=== PATIENT | female | born 1985 | race Two or more races ===

== ENCOUNTER 2017-07-18 16:37 | Emergency (ER) | payer BC, OTHER ==
[2017-07-18 16:55] VITALS: BMI 29.0
--- NOTE | 2017-07-18 17:13 | OBHP ---
Datetime: 07/18/2017 17:00 IP Adm Impression: , intrauterine ; Intact Membranes IP Admit Plan: Observation/Evaluation Admit Comment, IP Provider: 31yo IUP at 27w c/o vaginal discomfort for a few weeks. Today she felt that it was more and undure if it was lower abd. No F/U/D. No meds taken. PNC: CP/Dr Parikh - chart rev'd - no AP complicatoins PMH: denies PSH: denies POBGYNH: x 1; spont ab x 1 - no STD NKA PSoH: denies smoking ETOH drugs PFH: denies DM HTN A: IUP at 27w vaginal pain/?pelvic pain - threatened PTL PLAN: Check UA/FFN Abdomen - PN: Normal General - PN: Normal FHR - Baseline A Provider: 135 Membranes, Provider: Intact Contraction Comments Provider: none Comments, ACOG Physical Exam: In NAD SSE: no dischargre/Cervix closed Pool Provider: Negative IP Hx Assessment: The History has been Reviewed and is Current EGA AdmitDate IP: 28.3 Vital Signs Provider: Reviewed; Within Normal Limits IP Chief Complaint: Other NICHD Variability Prov Fetus A: Moderate 6-25bpm NICHD Accel Fetus A IP Provider: 10X10 FHR Category Provider Fetus A: Category I Dilatation, Provider: 0 Genitourinary Exam: Normal
[2017-07-18 17:51] LABS: SPECIMEN COMMENT CLOUDY
[2017-07-18 18:17] LABS: SQUAMOUS EPITHIAL < 1 /hpf (0-5); URINE BACTERIA OCC (<OCC); URINE BILIRUBIN NEGATIVE (NEGATIVE); URINE BLOOD NEGATIVE (NEGATIVE); URINE CLARITY CLEAR (Clear); URINE COLOR STRAW (YELLOW); URINE GLUCOSE (UA) NEG (Normal); URINE LEUKOCYTE ESTERASE NEG Leu/uL (Negative); URINE PROTEIN NEGATIVE (NEGATIVE); URINE UROBILINOGEN 0.2-1.0 mg/dL (0.2-1.0)
[2017-07-19 00:25] VITALS: BP 111/61; PULSE 65
--- NOTE | 2017-07-19 07:37 | OBDCSUM ---
Datetime: 07/18/2017 17:57 Discharge Comment, Provider: Add: pt was called by Dr Bailey and told not to take Abx UA neg(no nitrites/no leuko est) Discharge Diagnosis Prov Other: Vaginal pain
== END 2017-07-18 17:57 | disposition home or self-care (01) ==
LOC: H.EROB2 16:37
DX: O26.93 Pregnancy related conditions, unspecified, third trimester (principal); R10.2 Pelvic and perineal pain; Z3A.27 27 weeks gestation of pregnancy

== ENCOUNTER 2017-08-14 16:43 | Emergency (ER) | payer OTHER ==
[2017-08-14 15:32] VITALS: BMI 29.9
[2017-08-14 15:55] LABS: BASO % 0.2 % (0.0-2.0); EOS # 0.1 K/uL (0.0-0.7); EOS % 0.5 % (0.0-4.0); HEMOGLOBIN 12.1 g/dL (12.0-16.0); LYMPH # 1.7 K/uL (1.0-4.3); LYMPH % 14.8 % (20.0-40.0); MEAN CELL VOLUME 92.5 fl (81.0-99.0); MEAN CORPUSCULAR HEMOGLOBIN 31.7 pg (27.0-31.0); MEAN CORPUSCULAR HGB CONC 34.3 g/dL (33.0-37.0); MEAN PLATELET VOLUME 8.1 fl (7.2-11.7); MONO # 0.5 K/uL (0.0-0.8); MONO % 4.6 % (0.0-10.0); NEUT # 9.4 K/uL (1.8-7.0); NEUT % 79.9 % (50.0-75.0); RBC 3.82 Mil/uL (3.80-5.20); RED CELL DISTRIBUTION WIDTH 13.1 % (11.5-14.5); WHITE BLOOD COUNT 11.8 K/uL (4.8-10.8)
[2017-08-14 15:58] LABS: SQUAMOUS EPITHIAL 1 /hpf (0-5); URINE BACTERIA RARE (<OCC); URINE BILIRUBIN NEGATIVE (NEGATIVE); URINE BLOOD NEGATIVE (NEGATIVE); URINE CLARITY SLIGHTY-CLOUDY (Clear); URINE COLOR YELLOW (YELLOW); URINE GLUCOSE (UA) 50 mg/dL (Normal); URINE LEUKOCYTE ESTERASE NEG Leu/uL (Negative); URINE PROTEIN NEGATIVE (NEGATIVE); URINE UROBILINOGEN 0.2-1.0 mg/dL (0.2-1.0)
[2017-08-14 16:18] LABS: ALB/GLOB RATIO 1.1 (1.0-2.1); ALBUMIN 3.6 g/dL (3.5-5.0); ALT/SGPT 25 U/L (9-52); AST/SGOT 30 U/L (14-36); BLOOD UREA NITROGEN 11 mg/dl (7-17); CALCIUM 8.6 mg/dL (8.4-10.2); GFR AFRICAN-AMERICAN > 60; GFR NON-AFRICAN AMERICAN > 60
--- NOTE | 2017-08-14 16:25 | OBHP ---
Datetime: 08/14/2017 16:12 IP Adm Impression: , intrauterine IP Chief Complaint Other: diarrhea IP Admit Plan: Observation/Evaluation Admit Comment, IP Provider: Patient is a 31-year-old 3 para 1011 EDC 10/16/2017 by a 9 week ultrasound presents 32.2 weeks with complaints of diarrhea or AVMs morning. She denies nausea and vom iting date she is tolerating by mouth daily she had a banana in morning and some noodles in early aft ernoon. She denies decreased movement contractions and spontaneous rupture of membranes or vag inal bleeding care with Dr. Amador Past OB history spontaneous vaginal delivery 1; spontaneous AB times Past medical history: Denies Past surgical history: Denies Drug allergies Social history denies tobacco alcohol or illicit drug use Impression 32.2 weeks diarrhea Plan: IV fluid hydration CBC, CMP and UA Pelvic Type - PN: Adequate Extremities - PN: Normal Abdomen - PN: Normal Heart - PN: Normal Neurologic - PN: Normal HEENT - PN: Normal General - PN: Normal FHR - Baseline A Provider: 130 Contraction Comments Provider: no EGA AdmitDate IP: 32.2 Vital Signs Provider: Within Normal Limits IP Chief Complaint: Trauma/Fall NICHD Variability Prov Fetus A: Moderate 6-25bpm NICHD Accel Fetus A IP Provider: 15X15 FHR Category Provider Fetus A: Category I NICHD Decel Fetus A IP Provider: None Dilatation, Provider: 0 Effacement, Provider: 0 Station, Provider: -3 Genitourinary Exam: Normal
[~2017-08-14 16:43] MED LIST: Lactated Ringer's 1,000 ML IV SCH
== END 2017-08-14 17:00 | disposition home or self-care (01) ==
LOC: H.EROB2 16:43 → EDSTATUS 17:35 → H.EROB2 17:35
DX: O26.93 Pregnancy related conditions, unspecified, third trimester (principal); R19.7 Diarrhea, unspecified; Z3A.32 32 weeks gestation of pregnancy
CPT/HCPCS: 80053; 81003; 85025; 99283; J7120

== ENCOUNTER 2017-10-05 05:56 | Inpatient (IN) | payer OTHER ==
[2017-10-05 06:10] VITALS: BMI 30.7
[2017-10-05] MEDS ORDERED: Lactated Ringer's 1,000 ML IV SCH (06:15)
[2017-10-05] MEDS ORDERED: Penicillin G 5 Million Unit Vial IVPB ONE (06:23)
[2017-10-05] MEDS: Lactated Ringer's 1,000 ML IV SCH ×2 (07:30→08:30)
[2017-10-05 07:45] LABS: BASO % 0.4 % (0.0-2.0); EOS # 0.3 K/uL (0.0-0.7); EOS % 3.4 % (0.0-4.0); HEMOGLOBIN 12.6 g/dL (12.0-16.0); LYMPH # 1.9 K/uL (1.0-4.3); LYMPH % 23.8 % (20.0-40.0); MEAN CELL VOLUME 92.7 fl (81.0-99.0); MEAN CORPUSCULAR HEMOGLOBIN 30.9 pg (27.0-31.0); MEAN CORPUSCULAR HGB CONC 33.4 g/dL (33.0-37.0); MEAN PLATELET VOLUME 9.3 fl (7.2-11.7); MONO # 0.5 K/uL (0.0-0.8); MONO % 6.5 % (0.0-10.0); NEUT # 5.4 K/uL (1.8-7.0); NEUT % 65.9 % (50.0-75.0); RBC 4.07 Mil/uL (3.80-5.20); WHITE BLOOD COUNT 8.1 K/uL (4.8-10.8)
[2017-10-05] MEDS ORDERED: Lidocaine 1% Inj (20ml) ONE (07:53)
[2017-10-05] MEDS ORDERED: Fentanyl/Bupivacaine HCl 250 ML EPI ONE (10:04)
--- NOTE | 2017-10-05 14:18 | OBPN ---
Datetime: 10/05/2017 11:30 IP Progress Impression: Reassuring heart rate IP Procedures: Artificial ROM; Sterile Vag Exam IP Progress Plan: Continue present management Membranes, Provider: Ruptured Amniotic Fluid Color, Provider: Clear Contraction Comments Provider: occasional contraction FHR - Baseline A Provider: 120s-130s IP Progress Note Comment: AROM Clear fluid. Continue current management. Maternal well-being and well-being reassuring at this time. Vital Signs Provider: Reviewed; Within Normal Limits NICHD Accel Fetus A IP Provider: 15X15 FHR Category Provider Fetus A: Category I NICHD Variability Prov Fetus A: Moderate 6-25bpm Dilatation, Provider: 6-7 Effacement, Provider: 100 Station, Provider: -1 NICHD Decel Fetus A IP Provider: None Datetime: 10/05/2017 06:00 Pool Provider: Negative
--- NOTE | 2017-10-05 14:21 | OBPN ---
Datetime: 10/05/2017 14:18 IP Progress Impression: Reassuring heart rate IP Procedures: Sterile Vag Exam IP Progress Plan: Augmentation Contraction Comments Provider: q2-5min FHR - Baseline A Provider: 120s IP Progress Note Comment: Minimal labor progress. Plan to start pitocin augmentation. Both MWB/FWB reassuring at this time. Vital Signs Provider: Reviewed; Within Normal Limits NICHD Accel Fetus A IP Provider: 15X15 FHR Category Provider Fetus A: Category I NICHD Variability Prov Fetus A: Moderate 6-25bpm Dilatation, Provider: 7 Effacement, Provider: 100 Station, Provider: -1 NICHD Decel Fetus A IP Provider: None
[2017-10-05] MEDS ORDERED: Oxytocin 30 units/LR 500ML 30 U/500 ML BAG IV ONE (14:45)
[2017-10-05] MEDS ORDERED: Oxycodone/Acetaminophen 5/325 mg Tab PO PRN ×2 (15:34→17:42)
[2017-10-05] MEDS ORDERED: Benzocaine/Menthol SPRAY TOP PRN ×2 (15:34→17:42)
[2017-10-06 05:58] LABS: BASO # 0.1 K/uL (0.0-0.2); BASO % 0.9 % (0.0-2.0); EOS # 0.3 K/uL (0.0-0.7); EOS % 2.1 % (0.0-4.0); HEMOGLOBIN 12.3 g/dL (12.0-16.0); LYMPH # 1.8 K/uL (1.0-4.3); LYMPH % 14.7 % (20.0-40.0); MEAN CELL VOLUME 93.1 fl (81.0-99.0); MEAN CORPUSCULAR HEMOGLOBIN 31.4 pg (27.0-31.0); MEAN CORPUSCULAR HGB CONC 33.8 g/dL (33.0-37.0); MEAN PLATELET VOLUME 8.9 fl (7.2-11.7); MONO # 0.7 K/uL (0.0-0.8); MONO % 5.4 % (0.0-10.0); NEUT # 9.4 K/uL (1.8-7.0); NEUT % 76.9 % (50.0-75.0); NRBC % 0.1 % (0.0-0.0); RBC 3.92 Mil/uL (3.80-5.20); RED CELL DISTRIBUTION WIDTH 13.2 % (11.5-14.5); WHITE BLOOD COUNT 12.2 K/uL (4.8-10.8)
--- NOTE | 2017-10-06 10:00 | OBPPN ---
Datetime: 10/06/2017 09:57 PP Pain Prov: Within normal limits PP Nausea Prov: Denies PP Flatus Prov: Yes PP Breasts Prov: Normal PP Heart Prov: Normal PP Lungs Prov: Normal PP Abdomen/Uterus Prov: Normal PP Lochia Prov: Normal PP Vulva/Perineum Prov: Normal PP CVA Tenderness Prov: Normal PP Extremities Prov: Normal PP Impression Prov: Normal progression PP Plan Prov: Continue present management PP Progress Note Prov: Patient denies CP, no SOB, no N/V, tolerating PO diet, ambulating/voiding wel l, mild lochia, abdominal pain tolerable with meds, mild lochia A/P PPD #1 1. Continue orders 2. Encourage ambulation/ IP PP Procedures: None Vital Signs Provider PP: Reviewed; Within Normal Limits
--- NOTE | 2017-10-07 10:06 | OBPPN ---
Datetime: 10/07/2017 10:02 PP Pain Prov: Within normal limits PP Nausea Prov: Denies PP Flatus Prov: Yes PP Breasts Prov: Normal PP Heart Prov: Normal PP Lungs Prov: Normal PP Abdomen/Uterus Prov: Normal PP Lochia Prov: Normal PP Vulva/Perineum Prov: Normal PP CVA Tenderness Prov: Normal PP Extremities Prov: Normal PP Comments Phys Exam Prov: fundus firm under umbilicus PP Impression Prov: Normal progression PP Plan Prov: Continue present management PP Progress Note Prov: Patient denies CP, no SOB, no N/V, tolerating PO diet, ambulating/voiding wel l,mild lochia, abdominal pain tolerable with meds A/P PPD #2 1. Discharge home 2. Discharge instructions reviewed IP PP Procedures: None Vital Signs Provider PP: Within Normal Limits
--- NOTE | 2017-10-07 10:06 | OBDCSUM ---
Datetime: 10/07/2017 10:04 Discharged to, Provider: Home Follow up at, Provider: OB Disch Instr Activity: Normal activity Disch Instr Diet: Regular Discharge Instructions, Provider: Routine instructions given Discharge Diagnosis, Provider: Term Delivered Discharge Time: 10/07/2017 10:04 Follow up in weeks, Provider: 6 wks Disch Referrals: None Contraception discussed, Prov: Yes
--- NOTE | 2017-10-07 11:16 | NBCIR ---
Datetime: 07/18/2017 16:43 Preformed by:: Dr. Hoa Amador Circumcision Request: Yes Consent Signed: Written Consent Signed and on Chart Position: Papoose Board Circumcision Time Out: Correct Patient Identity; Correct Side and Site are Marked; Accurate Procedur e Consent Form; Agreement on Procedure to be Done; Correct Patient Position; Relevant Images and Resu lts are Properly Labeled and Displayed Site Prep: Sterile Drape Circumcision Date/Time: 10/07/2017 11:14 Block/Anesthestics: 1 Percent Lidocaine Equipment Used: Gomco Clamp Ayon Size: 1.3 Systemic Medications: None Complications: None Status: Excellent Cosmetic Outcome; Tolerated Procedure Well; Hemostatic Parents Present: None Procedure Note: Pt tolerated procedure well Datetime: 07/18/2017 16:38 PT-NAME: SERENA CANELA
[2017-10-07 20:17] VITALS: BP 127/88; PULSE 53; RESP 20; TEMP 98.2; O2SAT 97
== END 2017-10-07 15:45 | disposition home or self-care (01) | DRG 775 ==
LOC: H.EROB2 05:56 → H.L&D 06:04 → H.OB/GYN 17:30
PROVIDERS: ADMIT Obstetrics & Gynecology Gynecology; ATTEND Obstetrics & Gynecology Gynecology
PROC: 10E0XZZ Delivery of Products of Conception, External Approach (ICD-10-PCS; principal; 2017-10-05)
PROC: 10907ZC Drainage of Amniotic Fluid, Therapeutic from Products of Conception, Via Natural or Artificial Opening (ICD-10-PCS; 2017-10-05)
PROC: 4A1HXCZ Monitoring of Products of Conception, Cardiac Rate, External Approach (ICD-10-PCS; 2017-10-05)
DX: O80 Encounter for full-term uncomplicated delivery (principal); Z37.0 Single live birth; Z3A.38 38 weeks gestation of pregnancy